=== PATIENT | male | born 1965 | race Caucasian/White ===

== ENCOUNTER 2016-07-05 06:08 | Observation (INO) | payer OTHER ==
[~2016-07-05] VITALS: Ht 190.5 cm; Wt 123.9 kg
[~2016-07-05 06:08] MED LIST: ATENOLOL25 MG PO; FAMOTIDINE20 MG PO; FOLIC ACID1 MG PO; FURO20I IV; LIBRIUM10 MG PO; SPIRONOLACTONE50 MG PO; Thiamine,Vitamin B1 PO
[2016-07-05 06:37] LABS: HEMATOCRIT 32.1 % (38.0-50.0); MCH 34.6 PG (29.0-34.0); MCHC 35.8 G/DL (30.0-36.0); MCV 96.7 FL (86-99); MEAN PLAT.VOLUME 9.5 uM^3 (9.0-12.4); PLATELET COUNT 101 K/uL (156-360); RBC DIS.WIDTH-CV 16.5 % (11.8-14.6); RBC DIS.WIDTH-SD 55.4 % (39-53); RED BLOOD COUNT 3.32 M/uL (4.00-5.50)
[2016-07-05 06:39] LABS: WHITE BLOOD COUNT 9.8 K/uL (4.1-10.2)
[2016-07-05 07:30] LABS: INTER. NORMALIZED RATIO 1.8
[2016-07-05 07:32] LABS: ALKALINE PHOSPHATASE 108 IU/L (3-129); ANION GAP 11 MEQ/L (2-14); CHLORIDE 94 MEQ/L (99-109); GFR ESTIMATE (CALCULATED) 49 mL/min/; GLUCOSE 112 mg/dL (70-99); SAMPLE HEMOLYSIS CHECK 0; SAMPLE ICTERIC CHECK 3; SAMPLE LIPEMIA CHECK 0; SODIUM 128 MEQ/L (136-147); TOTAL BILIRUBIN 11.8 MG/DL (0.0-1.0); UREA NITROGEN (BUN) 14 mg/dL (9-23)
[2016-07-05] MEDS ORDERED: ALDACTONE100 MG PO (09:59)
[2016-07-05] MEDS ORDERED: FOLIC ACID1 MG PO (10:00)
[2016-07-05] MEDS ORDERED: FUROSEMIDE80 MG PO (10:00)
[2016-07-05 10:01] LABS: ADD MIUA? YES; BILIRUBIN LARGE; BLOOD NEGATIVE; GLUCOSE (STRIP) NEGATIVE; KETONES TRACE; LEUKOCYTES SMALL; NITRITE POSITIVE; PROTEIN (STRIP) NEGATIVE; SPECIFIC GRAVITY 1.019 (1.000-1.030)
[2016-07-05] MEDS ORDERED: VITAMIN B-1100 MG PO (10:01)
[2016-07-05] MEDS ORDERED: ONE DAILY TABL1 EAC1 PO (10:01)
[2016-07-05] MEDS ORDERED: PANTOPRAZOLE SO40 MG PO (10:01)
[2016-07-05 10:02] LABS: COLOR ORANGE ((YELLOW))
[2016-07-05 10:23] LABS: ICTOTEST POSITIVE
[2016-07-05 10:42] LABS: RED BLOOD CELLS 0-5 /HPF (0-5); WHITE BLOOD CELLS 0-5 /HPF (0-5)
[2016-07-05 10:43] LABS: BACTERIA 1+; CASTS PRESENT /LPF; CRYSTALS NONE SEEN; EPITHELIAL CELLS RARE; HYALINE CASTS TNTC /LPF; MUCUS 2+; UCUL ADDED? NO
[2016-07-05 10:48] LABS: TYPE OF FLUID PARACENTESIS
[2016-07-05 11:11] LABS: BODY FLUID RBC'S 3000 /MM^3 (0-100); BODY FLUID WBC'S 6177 /MM^3 (0-500)
[2016-07-05 11:40] LABS: BODY FLUID EOSINOPHILS 0 % (0-25); MONONUCLEAR WBC'S 0 %; POLY RAW COUNT 100; POLYNUCLEAR WBC'S 100 % (0-25)
[2016-07-05 13:07] VITALS: BP 122/58
[2016-07-05 16:30] VITALS: BP 115/57
[2016-07-05 19:15] VITALS: BP 125/60
[2016-07-05 23:45] VITALS: BP 140/70
[2016-07-06 05:27] VITALS: BP 119/60
[2016-07-06 08:40] VITALS: BP 121/57
[2016-07-06 08:54] LABS: ANION GAP 7 MEQ/L (2-14); CHLORIDE 95 MEQ/L (99-109); GFR ESTIMATE (CALCULATED) 53 mL/min/; GLUCOSE 118 mg/dL (70-99); POTASSIUM 3.8 MEQ/L (3.7-5.4); SAMPLE HEMOLYSIS CHECK 0; SAMPLE ICTERIC CHECK 2; SAMPLE LIPEMIA CHECK 0; SODIUM 127 MEQ/L (136-147); TOTAL BILIRUBIN 10.3 MG/DL (0.0-1.0); UREA NITROGEN (BUN) 20 mg/dL (9-23)
[2016-07-06 08:55] LABS: ALKALINE PHOSPHATASE 76 IU/L (3-129)
[2016-07-06 11:13] LABS: INTER. NORMALIZED RATIO 2.2
[2016-07-06 12:00] VITALS: BP 128/58
[2016-07-06 15:09] VITALS: BP 131/61
[2016-07-07] VITALS: BP 130/59
[2016-07-07 07:37] VITALS: BP 140/66
[2016-07-07 09:01] LABS: ALKALINE PHOSPHATASE 62 IU/L (3-129); ANION GAP 6 MEQ/L (2-14); CHLORIDE 96 MEQ/L (99-109); GFR ESTIMATE (CALCULATED) 53 mL/min/; GLUCOSE 105 mg/dL (70-99); POTASSIUM 3.6 MEQ/L (3.7-5.4); SAMPLE HEMOLYSIS CHECK 0; SAMPLE ICTERIC CHECK 2; SAMPLE LIPEMIA CHECK 0; SODIUM 128 MEQ/L (136-147); UREA NITROGEN (BUN) 21 mg/dL (9-23)
[2016-07-07 09:02] LABS: TOTAL BILIRUBIN 7.7 MG/DL (0.0-1.0)
[2016-07-07 09:06] LABS: HEMATOCRIT 24.3 % (38.0-50.0); MCH 34.1 PG (29.0-34.0); MCHC 35.8 G/DL (30.0-36.0); MCV 95.3 FL (86-99); RBC DIS.WIDTH-CV 16.3 % (11.8-14.6); RBC DIS.WIDTH-SD 56.9 % (39-53)
[2016-07-07 09:12] LABS: RED BLOOD COUNT 2.55 M/uL (4.00-5.50); WHITE BLOOD COUNT 5.8 K/uL (4.1-10.2)
[2016-07-07 10:02] LABS: MEAN PLAT.VOLUME 10.1 uM^3 (9.0-12.4); PLATELET COUNT 58 K/uL (156-360)
[2016-07-07 13:16] LABS: HEMATOCRIT 25.7 % (38.0-50.0); MCH 33.8 PG (29.0-34.0); MCV 96.6 FL (86-99); PLATELET COUNT 60 K/uL (156-360); RBC DIS.WIDTH-CV 16.4 % (11.8-14.6); RBC DIS.WIDTH-SD 57.8 % (39-53); RED BLOOD COUNT 2.66 M/uL (4.00-5.50)
[2016-07-07] MEDS ORDERED: CIPROFLOXACIN500 M1 PO (13:23)
== END 2016-07-07 15:50 | disposition home or self-care (01) ==
LOC: EME 06:08 → EDOF 10:35 → 5WEST 10:35 → 5SOUTH 10:35 → EDOF 10:35 → 5WEST 12:26 → 5SOUTH 07-06 08:01 → 5WEST 07-06 08:01 → 5SOUTH 07-06 15:42
PROVIDERS: Emergency Medicine; Hospitalist; Internal Medicine; Internal Medicine Gastroenterology; Radiology Diagnostic Radiology
PROC: 0W9G3ZZ Drainage of Peritoneal Cavity, Percutaneous Approach (ICD-10-PCS; principal; 2016-07-05)
DX: R60.1 Generalized edema (principal); K70.31 Alcoholic cirrhosis of liver with ascites; E87.1 Hypo-osmolality and hyponatremia; N17.9 Acute kidney failure, unspecified; N39.0 Urinary tract infection, site not specified; D69.6 Thrombocytopenia, unspecified; M79.89 Other specified soft tissue disorders; E66.9 Obesity, unspecified; Z68.34 Body mass index [BMI] 34.0-34.9, adult; F10.21 Alcohol dependence, in remission
CPT/HCPCS: 71010; 80053; 81003; 82436; 84133; 84300; 85027; 85610; 87070; 87075; 87086; 87205; 89051; 93971; 94799; 99281; 99285; G0378; J0696; J1170; J1644; J7050; P9047

== ENCOUNTER → 2016-07-22 | Outpatient (CLI) | payer OTHER ==
[~2016-07-22] MED LIST changes: +ALDACTONE100 MG PO; +CIPROFLOXACIN500 M1 PO; +FUROSEMIDE80 MG PO; +ONE DAILY TABL1 EAC1 PO; +PANTOPRAZOLE SO40 MG PO; +VITAMIN B-1100 MG PO
== END | disposition home or self-care (01) ==
LOC: RAD 07:32
PROC: 0W9G3ZZ Drainage of Peritoneal Cavity, Percutaneous Approach (ICD-10-PCS; principal; 2016-07-22)
DX: R18.8 Other ascites (principal)

== ENCOUNTER → 2016-08-04 | Outpatient (CLI) | payer OTHER | END | disposition home or self-care (01) | LOC: RAD 13:11 | PROC: 0W9G3ZZ Drainage of Peritoneal Cavity, Percutaneous Approach (ICD-10-PCS; principal; 2016-08-04) | DX: R18.8 Other ascites (principal) ==

== ENCOUNTER → 2016-08-19 | Outpatient (CLI) | payer OTHER | END | disposition home or self-care (01) | LOC: RAD 08-17 08:15 | PROC: 0W9G3ZZ Drainage of Peritoneal Cavity, Percutaneous Approach (ICD-10-PCS; principal; 2016-08-19) | DX: R18.8 Other ascites (principal) ==

== ENCOUNTER → 2016-08-30 | Outpatient (CLI) | payer OTHER | END | disposition home or self-care (01) | LOC: RAD 07:50 | PROC: 0W9G3ZZ Drainage of Peritoneal Cavity, Percutaneous Approach (ICD-10-PCS; principal; 2016-08-30) | DX: R18.8 Other ascites (principal) ==

== ENCOUNTER 2016-09-13 09:30 | Inpatient (IN) | payer OTHER ==
[~2016-09-13] VITALS: Ht 190.5 cm; Wt 123.1 kg
[2016-09-13] VITALS (11 sets, daily range): BP systolic 99–130; BP diastolic 25–44
[2016-09-13 10:33] LABS: HEMATOCRIT 26.6 % (38.0-50.0); MCH 33.3 PG (29.0-34.0); MCHC 36.1 G/DL (30.0-36.0); MEAN PLAT.VOLUME 10.6 uM^3 (9.0-12.4); PLATELET COUNT 133 K/uL (156-360); RBC DIS.WIDTH-CV 16.1 % (11.8-14.6); RBC DIS.WIDTH-SD 53.7 % (39-53); RED BLOOD COUNT 2.88 M/uL (4.00-5.50)
[2016-09-13 10:42] LABS: INTER. NORMALIZED RATIO 1.8; PTT 38.6 (25-32)
[2016-09-13 10:46] LABS: CHLORIDE 90 mEq/L (99-109); POTASSIUM 5.7 mEq/L (3.7-5.4)
[2016-09-13 10:48] LABS: GLUCOSE 98 mg/dL (70-99)
[2016-09-13 10:50] LABS: ANION GAP 10 MEQ/L (2-14); TOTAL BILIRUBIN 6.4 mg/dL (0.0-1.0)
[2016-09-13 10:51] LABS: ALKALINE PHOSPHATASE 169 IU/L (3-129)
[2016-09-13 10:52] LABS: GFR ESTIMATE (CALCULATED) 12 mL/min/
[2016-09-13 10:53] LABS: MCV 92.4 FL (86-99); UREA NITROGEN (BUN) 81 mg/dL (9-23); WHITE BLOOD COUNT 16.6 K/uL (4.1-10.2)
[2016-09-13 10:55] LABS: SODIUM 117 mEq/L (136-147)
[2016-09-13 11:43] LABS: POINT-OF-CARE METER ID UU13113702
[2016-09-13 13:01] LABS: TYPE OF FLUID PERITONEAL
[2016-09-13 14:21] LABS: BODY FLUID EOSINOPHILS 0 % (0-25); BODY FLUID RBC'S < 1000 /MM^3 (0-100); BODY FLUID WBC'S 301 /MM^3 (0-500); MONONUCLEAR WBC'S 31 %; POLYNUCLEAR WBC'S 69 % (0-25)
[2016-09-13 14:22] LABS: COMMENT RARE MESOTHELIAL CEL
[2016-09-13] MEDS ORDERED: EXCEDRIN EXTRA1 EACH PO (14:38)
[2016-09-13] MEDS ORDERED: ICY HOT CREAM35.4 G1 TP (14:40)
[2016-09-13] MEDS ORDERED: COLACE100 MG PO (14:40)
[2016-09-13 18:15] LABS: METH RESISTANT S AUREUS PCR POSITIVE (NEGATIVE)
[2016-09-13 18:18] LABS: PROBE CHECK PASS
[2016-09-13 18:26] LABS: MAGNESIUM 2.4 mg/dL (1.3-2.7)
[2016-09-13 22:46] LABS: BILIRUBIN NEGATIVE; BLOOD NEGATIVE; COLOR AMBER ((YELLOW)); GLUCOSE (STRIP) NEGATIVE; KETONES NEGATIVE; LEUKOCYTES NEGATIVE; NITRITE NEGATIVE; PROTEIN (STRIP) NEGATIVE; SPECIFIC GRAVITY 1.016 (1.000-1.030); UROBILINOGEN 0.2 MG/DL (0.2-1.0)
[2016-09-13 22:54] LABS: ADD MIUA? NO; UCUL ADDED? NO
[2016-09-13 22:59] LABS: UR CREATININE CONCENTRATION 179.5 MG/DL
[2016-09-13 23:25] LABS: CHLORIDE 89 mEq/L (99-109)
[2016-09-13 23:26] LABS: MAGNESIUM 2.6 mg/dL (1.3-2.7)
[2016-09-13 23:27] LABS: GLUCOSE 94 mg/dL (70-99)
[2016-09-13 23:31] LABS: GFR ESTIMATE (CALCULATED) 12 mL/min/
[2016-09-13 23:32] LABS: ANION GAP 12 MEQ/L (2-14); POTASSIUM 5.8 mEq/L (3.7-5.4); UREA NITROGEN (BUN) 83 mg/dL (9-23)
[2016-09-13 23:40] LABS: SODIUM 118 mEq/L (136-147)
[2016-09-14] VITALS (9 sets, daily range): BP systolic 99–118; BP diastolic 34–45
[2016-09-14 06:28] LABS: ALKALINE PHOSPHATASE 92 IU/L (3-129); ANION GAP 12 MEQ/L (2-14); CHLORIDE 88 MEQ/L (99-109); DIRECT BILIRUBIN 3.3 mg/dL (0.0-0.3); GFR ESTIMATE (CALCULATED) 12 mL/min/; GLUCOSE 121 mg/dL (70-99); INTER. NORMALIZED RATIO 2.1; MAGNESIUM 2.8 mg/dl (1.3-2.7); POTASSIUM 5.4 MEQ/L (3.7-5.4); PROTHROMBIN TIME 21.5 (9.2-11.2); PTT 43.8 (25-32); SAMPLE HEMOLYSIS CHECK 0; SAMPLE ICTERIC CHECK 2; SAMPLE LIPEMIA CHECK 0; TOTAL BILIRUBIN 5.9 MG/DL (0.0-1.0); UREA NITROGEN (BUN) 83 mg/dL (9-23)
[2016-09-14 06:30] LABS: SODIUM 117 MEQ/L (136-147)
[2016-09-14 06:37] LABS: EOSINOPHIL COUNT 0.1 K/uL (0-0.3); HEMATOCRIT 21.3 % (38.0-50.0); IMMATURE GRANULOCYTE (%) 3.9 % (0.0-0.7); IMMATURE GRANULOCYTE COUNT 0.4 K/uL; INSTRUMENT ABS NEUTROPHIL CT 8.4 K/uL; LYMPHOCYTE COUNT 0.8 K/uL (1.0-2.8); MCH 33.8 PG (29.0-34.0); MCHC 36.2 G/DL (30.0-36.0); MCV 93.4 FL (86-99); MEAN PLAT.VOLUME 10.8 uM^3 (9.0-12.4); MONOCYTE (%) 10.8 % (3-12); MONOCYTE COUNT 1.2 K/uL (0-0.8); NEUTROPHIL (%) 76.4 % (45-76); NEUTROPHIL COUNT 8.4 K/uL (1.8-6.4); PLATELET COUNT 98 K/uL (156-360); RBC DIS.WIDTH-CV 16.9 % (11.8-14.6); RBC DIS.WIDTH-SD 56.9 % (39-53)
[2016-09-14 06:41] LABS: RED BLOOD COUNT 2.28 M/uL (4.00-5.50); WHITE BLOOD COUNT 10.9 K/uL (4.1-10.2)
[2016-09-14 11:53] LABS: POINT-OF-CARE METER ID UU14174217
[2016-09-14 23:34] LABS: POINT-OF-CARE METER ID UU13113731
[2016-09-15] VITALS (10 sets, daily range): BP systolic 110–148; BP diastolic 40–47
[2016-09-15 06:43] LABS: ANION GAP 11 MEQ/L (2-14); CHLORIDE 90 MEQ/L (99-109); GFR ESTIMATE (CALCULATED) 12 mL/min/; GLUCOSE 113 mg/dL (70-99); MAGNESIUM 2.8 mg/dl (1.3-2.7); POTASSIUM 5.7 MEQ/L (3.7-5.4); SAMPLE HEMOLYSIS CHECK 0; SAMPLE ICTERIC CHECK 1; SAMPLE LIPEMIA CHECK 0; SODIUM 120 MEQ/L (136-147); UREA NITROGEN (BUN) 89 mg/dL (9-23)
[2016-09-15 06:44] LABS: VANCOMYCIN, TROUGH 13.2 MCG/ML (10-20)
[2016-09-15 07:03] LABS: EOSINOPHIL (%) 2.7 % (0-5); EOSINOPHIL COUNT 0.2 K/uL (0-0.3); HEMATOCRIT 17.7 % (38.0-50.0); IMMATURE GRANULOCYTE (%) 2.7 % (0.0-0.7); IMMATURE GRANULOCYTE COUNT 0.2 K/uL; INSTRUMENT ABS NEUTROPHIL CT 5.8 K/uL; LYMPHOCYTE COUNT 0.8 K/uL (1.0-2.8); MCH 33.3 PG (29.0-34.0); MCHC 35.6 G/DL (30.0-36.0); MCV 93.7 FL (86-99); MEAN PLAT.VOLUME 11.1 uM^3 (9.0-12.4); MONOCYTE (%) 14.4 % (3-12); MONOCYTE COUNT 1.2 K/uL (0-0.8); NEUTROPHIL (%) 70.2 % (45-76); NEUTROPHIL COUNT 5.8 K/uL (1.8-6.4); PLATELET COUNT 83 K/uL (156-360); RBC DIS.WIDTH-CV 16.6 % (11.8-14.6); RBC DIS.WIDTH-SD 55.8 % (39-53); RED BLOOD COUNT 1.89 M/uL (4.00-5.50); WHITE BLOOD COUNT 8.2 K/uL (4.1-10.2)
[2016-09-15 12:00] LABS: POINT-OF-CARE METER ID UU13113731
[2016-09-15 13:38] LABS: TROP-I INTERPRETATION NEGATIVE; TROPONIN-I 0.15 ng/mL (0.0-0.30)
[2016-09-15 17:24] LABS: HEMATOCRIT 20.1 % (38.0-50.0); MCV 91.8 FL (86-99)
== END 2016-09-15 19:04 | disposition short-term general hospital (02) | DRG 371 ==
LOC: EME 09:30 → 4WEST 15:39 → EDOF 15:39 → 4WEST 15:39
PROVIDERS: Emergency Medicine; Internal Medicine Nephrology; Internal Medicine Pulmonary Disease
PROC: 0W9G3ZZ Drainage of Peritoneal Cavity, Percutaneous Approach (ICD-10-PCS; principal; 2016-09-13)
PROC: 02HV33Z Insertion of Infusion Device into Superior Vena Cava, Percutaneous Approach (ICD-10-PCS; 2016-09-14)
PROC: 03HY32Z Insertion of Monitoring Device into Upper Artery, Percutaneous Approach (ICD-10-PCS; 2016-09-14)
PROC: 30233N1 Transfusion of Nonautologous Red Blood Cells into Peripheral Vein, Percutaneous Approach (ICD-10-PCS; 2016-09-15)
DX: K65.2 Spontaneous bacterial peritonitis (principal); K76.7 Hepatorenal syndrome; N17.9 Acute kidney failure, unspecified; K70.31 Alcoholic cirrhosis of liver with ascites; E87.2 Acidosis; R78.81 Bacteremia; E87.1 Hypo-osmolality and hyponatremia; D68.4 Acquired coagulation factor deficiency; K21.9 Gastro-esophageal reflux disease without esophagitis; I10 Essential (primary) hypertension; G89.29 Other chronic pain; E87.5 Hyperkalemia; D69.6 Thrombocytopenia, unspecified; D63.8 Anemia in other chronic diseases classified elsewhere; Z87.891 Personal history of nicotine dependence
CPT/HCPCS: 36620; 71010; 74176; 76770; 80048; 80048 91; 80053; 80076; 80202; 81003; 82140; 82570; 82948; 83605; 83735; 83930; 83935; 84100; 84156; 84300; 84484; 84550; 85014; 85018; 85025; 85027; 85610; 85730; 86850; 86900; 86901; 86920; 87040; 87070; 87077; 87205; 87641; 87801; 89051; 93005; 94644; 94799; 99281; 99285; J0610; J0713; J1170; J1644; J1815; J1940; J2354; J2405; J2543; J3010; J3370; J7030; J7050; P9016; P9047